=== PATIENT | male | born 1985 | race Asian ===

== ENCOUNTER 2018-08-30 13:37 | Emergency (ER) | payer OTHER ==
[~2018-08-30] VITALS: Ht 167.6 cm; Wt 78.6 kg
[2018-08-30 13:40] VITALS: BP 131/84
--- NOTE | 2018-08-30 14:48 | NUR ---
Adam wrap applied to right lower extremity, patient tolerated well. Discharge instructions discussed with patient, verbalizes understanding. Patient ambulates with limp to discharge desk.
== END 2018-08-30 14:50 | disposition home or self-care (01) ==
LOC: ED 13:53
DX: G89.11 Acute pain due to trauma (principal); M25.552 Pain in left hip; X58.XXXA Exposure to other specified factors, initial encounter; Y93.64 Activity, baseball; Y92.89 Other specified places as the place of occurrence of the external cause; Y99.8 Other external cause status
CPT/HCPCS: 99281; 99282